=== PATIENT | female | born 1975 | race Caucasian/White ===

== ENCOUNTER 2018-01-21 15:17 | Emergency (ER) | payer OTHER ==
[~2018-01-21] VITALS: Ht 175.3 cm; Wt 69.8 kg
[~2018-01-21 15:17] MED LIST: ADAL40PEN SC; ALPR.5 PO; AZAT50; BUSP5; CANNABIS OIL; CEFD300 PO; CETI5 PO; CIPR500 PO; CLIM.025TP; CLON.2 PO; CLON.5; Cyclobenzaprine5 MG PO; Cymbalta30 MG PO; DIAZ5 PO; DULO60 PO; ESTR.1TPBW; HYDMOR4 PO; Keflex500 MG PO; LAMO100 PO; LOPE2C PO; LORA1 PO; Lomotil Tablet1 EACH PO; MARIJUANA; MEDR10 PO; NITR100CA PO; Norco 5-325 Ta1 EACH PO; Norco 7.5-3251 EACH PO; ONDA4ODT MM; OXYC10ER PO; OXYC10TA19 PO; OXYC5 PO; PARO20 PO; PARO30 PO; Percocet 5-3251 EACH PO; Pyridium100 MG PO; QNASL8.7 GM INH; QUET25 PO; SACC250C; SACC250C PO; VANCOMYCIN2 GM/250 M IV; VIT B SHOT; Vancocin HCL1000 MG
[2018-01-21 15:44] LABS: BASOPHILS ABSOLUTE AUTO 0.05 K/mm3 (0.00-0.23); BASOPHILS PERCENT AUTO 1 % (0-2); EOSINOPHILS ABSOLUTE AUTO 0.06 K/mm3 (0.00-0.68); EOSINOPHILS PERCENT AUTO 1 % (0-6); Hematocrit 40.4 % (33.0-51.0); Hemoglobin 14.1 g/dL (11.5-16.0); IMMATURE GRAN ABSOLUTE AUTO 0.01 K/mm3 (0.00-0.10); IMMATURE GRAN PERCENT AUTO 0 % (0-1); LYMPHOCYTES ABSOLUTE AUTO 1.02 K/mm3 (0.84-5.20); LYMPHOCYTES PERCENT AUTO 23 % (21-46); MONOCYTES ABSOLUTE AUTO 0.43 K/mm3 (0.16-1.47); MONOCYTES PERCENT AUTO 10 % (4-13); Mean Corpuscular HGB 31.8 pg (26.0-34.0); Mean Corpuscular HGB Conc 34.9 g/dL (31.5-36.5); Mean Corpuscular Volume 91 fL (80-100); Mean Platelet Volume 10.3 fL (9.1-12.4); NEUTROPHILS ABSOLUTE AUTO 2.91 K/mm3 (1.96-9.15); NEUTROPHILS PERCENT AUTO 65 % (41-73); Platelet Count 294 K/mm3 (150-400); Red Blood Cell Count 4.43 M/mm3 (3.80-5.20); White Blood Cell Count 4.48 K/mm3 (4.00-11.30)
[2018-01-21 16:04] LABS: Alanine Aminotransfer (ALT/SGP 44 U/L (12-78); Albumin, Blood 4.1 g/dL (3.4-5.0); Albumin/Globulin Ratio 1.2 (0.8-1.8); Alk Phos 45 U/L (50-136); Anion Gap 14 mmol/L (6-16); Aspartate Aminotrans (AST/SGOT 31 U/L (12-37); Bilirubin, Total 0.5 mg/dL (0.1-1.0); Blood Urea Nitrogen 9 mg/dL (8-24); Bun/Creatinine Ratio 11.4 (12.0-20.0); CO2, Blood 24 mmol/L (21-32); CPK Creatine Kinase 81 U/L (26-193); Calcium, Blood 9.4 mg/dL (8.5-10.1); Chloride, Blood 101 mmol/L (98-108); Creatine Kinase MB 2.9 ng/mL (0.0-3.6); Creatine Kinase MB Index 3.6 (0.0-4.0); Creatinine, Blood 0.79 mg/dL (0.40-1.00); Globulin, Blood 3.4 g/dL (2.2-4.0); Glomerular Filtration Rate >60 (60-); Glucose, Blood 108 mg/dL (70-99); Potassium, Blood 3.3 mmol/L (3.5-5.5); Sodium, Blood 139 mmol/L (136-145); Total Protein, Blood 7.5 g/dL (6.4-8.2)
[2018-01-21 16:10] LABS: Source, Urine Clean Catch
[2018-01-21 16:10] LABS: Adenovirus F 40/41 Not Detected (NOT DETECT); Astrovirus Not Detected (NOT DETECT); Campylobacter Sp Not Detected (NOT DETECT); Cryptosporidium Not Detected (NOT DETECT); Cyclospora Cayetanensis Not Detected (NOT DETECT); E. Coli O157 Not Detected (NOT DETECT); Entamoeba Histolytica Not Detected (NOT DETECT); Enteroaggregative E. coli-EAEC Not Detected (NOT DETECT); Enteropathogenic E. coli-EPEC Not Detected (NOT DETECT); Enterotoxigenic E. coli-ETEC Not Detected (NOT DETECT); Giardia Lamblia Not Detected (NOT DETECT); Norovirus GI/GII Not Detected (NOT DETECT); Plesiomonas Shigelloides Not Detected (NOT DETECT); Rotavirus A Not Detected (NOT DETECT); Salmonella Sp Not Detected (NOT DETECT); Sapovirus Not Detected (NOT DETECT); Shiga Toxin-prod E. coli-STEC Not Detected (NOT DETECT); Shigella/Enteroin E. coli-EIEC Not Detected (NOT DETECT); Vibrio Cholerae Not Detected (NOT DETECT); Vibrio Sp Not Detected (NOT DETECT); Yersinia Enterocolitica Not Detected (NOT DETECT)
[2018-01-21 16:32] LABS: Blood, Urine Neg (Neg); Glucose Qualitative, Urine Neg (Neg); Ketones, Urine 4+ (Neg); Leukocyte Esterase, Urine 1+ (Neg); Nitrite, Urine Neg (Neg); Protein, Urine 2+ (Neg); Specific Gravity, Urine 1.025 (1.003-1.022); Urobilinogen, Urine NORM (Normal)
[2018-01-21 16:39] LABS: Bilirubin, Urine 1+ (Neg)
[2018-01-21 16:40] LABS: Appearance, Urine Hazy (Clear); Color, Urine Yellow (P-Yellow)
[2018-01-21 16:42] LABS: Bacteria Not Seen /hpf; Red Blood Cells, Urine Not Seen /hpf (0-2); Squamous Epithelial Cells Few /hpf (Few); White Blood Cells, Urine 0-2 /hpf (0-5)
[2018-01-21] MEDS ORDERED: Macrobid 100 M100 MG PO (17:30)
[2018-01-21] MEDS ORDERED: Flagyl500 MG PO (17:30)
== END 2018-01-21 17:51 | disposition home or self-care (01) ==
LOC: ER 15:17
PROVIDERS: Emergency Medicine
DX: T67.8XXA Other effects of heat and light, initial encounter (principal); N39.0 Urinary tract infection, site not specified; R19.7 Diarrhea, unspecified; X30.XXXA Exposure to excessive natural heat, initial encounter
CPT/HCPCS: 80053; 81001; 82550; 82553; 83690; 83735; 85025; 87507; 96360; 96361; 99284-25; J7030

== ENCOUNTER 2020-03-11 15:41 | Inpatient (IN) | payer OTHER, MEDICARE ==
[~2020-03-11] VITALS: Ht 167.6 cm; Wt 80.5 kg
[~2020-03-11 15:41] MED LIST changes: +Flagyl500 MG PO; +Macrobid 100 M100 MG PO
[2020-03-11] MEDS ORDERED: ESTRADIOL PO (16:04)
[2020-03-11] MEDS ORDERED: LOPE2C PO (16:05)
[2020-03-11] MEDS ORDERED: LIDO700A20 TOP (16:05)
[2020-03-11] MEDS ORDERED: PROG100 PO (16:06)
[2020-03-11] MEDS ORDERED: MELA3 PO (16:06)
[2020-03-11] MEDS ORDERED: Seroquel Xr50 MG PO (16:07)
[2020-03-11 17:32] LABS: BASOPHILS ABSOLUTE AUTO 0.04 K/mm3 (0.00-0.23); BASOPHILS PERCENT AUTO 1 % (0-2); EOSINOPHILS ABSOLUTE AUTO 0.01 K/mm3 (0.00-0.68); EOSINOPHILS PERCENT AUTO 0 % (0-6); Hematocrit 39.9 % (33.0-51.0); Hemoglobin 13.3 g/dL (11.5-16.0); IMMATURE GRAN ABSOLUTE AUTO 0.02 K/mm3 (0.00-0.10); IMMATURE GRAN PERCENT AUTO 0 % (0-1); LYMPHOCYTES ABSOLUTE AUTO 0.75 K/mm3 (0.84-5.20); LYMPHOCYTES PERCENT AUTO 9 % (21-46); MONOCYTES ABSOLUTE AUTO 0.37 K/mm3 (0.16-1.47); MONOCYTES PERCENT AUTO 4 % (4-13); Mean Corpuscular HGB 31.2 pg (26.0-34.0); Mean Corpuscular HGB Conc 33.3 g/dL (31.5-36.5); Mean Corpuscular Volume 94 fL (80-100); Mean Platelet Volume 10.3 fL (9.1-12.4); NEUTROPHILS ABSOLUTE AUTO 7.26 K/mm3 (1.96-9.15); NEUTROPHILS PERCENT AUTO 86 % (41-73); Platelet Count 287 K/mm3 (150-400); RDW Standard Deviation 41.6 fL (35.1-46.3); Red Blood Cell Count 4.26 M/mm3 (3.80-5.20); White Blood Cell Count 8.45 K/mm3 (4.00-11.30)
[2020-03-11 17:47] LABS: Alanine Aminotransfer (ALT/SGP 37 U/L (12-78); Albumin, Blood 4.3 g/dL (3.4-5.0); Albumin/Globulin Ratio 1.2 (0.8-1.8); Alk Phos 60 U/L (50-136); Anion Gap 7 mmol/L (6-16); Aspartate Aminotrans (AST/SGOT 20 U/L (12-37); Bilirubin, Total 0.4 mg/dL (0.1-1.0); Blood Urea Nitrogen 13 mg/dL (8-24); CO2, Blood 24 mmol/L (21-32); Calcium, Blood 8.7 mg/dL (8.5-10.1); Chloride, Blood 112 mmol/L (98-108); Creatinine, Blood 0.72 mg/dL (0.40-1.00); Globulin, Blood 3.5 g/dL (2.2-4.0); Glomerular Filtration Rate >60 (60-); Glucose, Blood 87 mg/dL (70-99); Potassium, Blood 3.7 mmol/L (3.5-5.5); Sodium, Blood 143 mmol/L (136-145); Total Protein, Blood 7.8 g/dL (6.4-8.2)
--- NOTE | 2020-03-12 01:32 | NUR ---
CALL PLACED TO HOSPITALIST. PT REPORTING PAIN INCREASED 45 MINUTES DESPITE BEING GIVEN 2MG OF DILAUDID. NO INCREASE IN NAUSEA. [facility] CONTACTED FOR RESULTS OF CT. GIVEN TO DR. HAINES. N.O. FOR FENTANYL 25MCG IV Q4HRS PRN PAIN.
--- NOTE | 2020-03-12 04:43 | NUR ---
SHIFT SUMMARY: VSS. AFEB. AAOX4. COMMUNICATES NEEDS. MED X 2 FOR L FLANK PAIN, WRAPPING AROUND TO L ABD. PT SLEEPING IN BETWEEN PAIN MED DOSES BUT REPORTS LITTLE RELIEF FROM MEDICATION WHEN SHE IS AWAKE. REPORTING NAUSEA UPON WAKING THIS AM. PO PHENERGAN ADMINISTERED. APPEARS EFFECTIVE, PT CURRENTLY SLEEPING. HAS NOT VOIDED SO FAR TONIGHT. WILL ENCOURAGE VOID WHEN PT WAKES UP AGAIN. IV FLUIDS CONTINUOUSLY PER ORDERS. PT REMAINS NPO. NO VOMITING TONIGHT. BT ACTIVE. NO BM. WILL CONT TO MONITOR.
[2020-03-12 05:37] LABS: Source, Urine Voided
[2020-03-12 05:39] LABS: Appearance, Urine Hazy (Clear); Bilirubin, Urine Neg (Neg); Blood, Urine 1+ (Neg); Color, Urine Yellow (P-Yellow); Glucose Qualitative, Urine Neg (Neg); Ketones, Urine 3+ (Neg); Leukocyte Esterase, Urine 1+ (Neg); Nitrite, Urine Neg (Neg); Protein, Urine 1+ (Neg); Specific Gravity, Urine 1.025 (1.003-1.022); Urobilinogen, Urine NORM (Normal)
[2020-03-12 05:48] LABS: Bacteria Many /hpf; Red Blood Cells, Urine 0-2 /hpf (0-2); Squamous Epithelial Cells Many /hpf (Few)
[2020-03-12 06:07] LABS: BASOPHILS ABSOLUTE AUTO 0.05 K/mm3 (0.00-0.23); BASOPHILS PERCENT AUTO 1 % (0-2); EOSINOPHILS ABSOLUTE AUTO 0.05 K/mm3 (0.00-0.68); EOSINOPHILS PERCENT AUTO 1 % (0-6); Hematocrit 41.8 % (33.0-51.0); Hemoglobin 13.4 g/dL (11.5-16.0); IMMATURE GRAN ABSOLUTE AUTO 0.01 K/mm3 (0.00-0.10); IMMATURE GRAN PERCENT AUTO 0 % (0-1); LYMPHOCYTES ABSOLUTE AUTO 1.25 K/mm3 (0.84-5.20); LYMPHOCYTES PERCENT AUTO 25 % (21-46); MONOCYTES PERCENT AUTO 8 % (4-13); Mean Corpuscular HGB 31.1 pg (26.0-34.0); Mean Corpuscular HGB Conc 32.1 g/dL (31.5-36.5); Mean Corpuscular Volume 97 fL (80-100); Mean Platelet Volume 10.6 fL (9.1-12.4); NEUTROPHILS ABSOLUTE AUTO 3.34 K/mm3 (1.96-9.15); NEUTROPHILS PERCENT AUTO 66 % (41-73); Platelet Count 242 K/mm3 (150-400); RDW Coefficient Variation 11.9 % (11.7-14.2); RDW Standard Deviation 43.2 fL (35.1-46.3); Red Blood Cell Count 4.31 M/mm3 (3.80-5.20)
[2020-03-12 06:19] LABS: Anion Gap 6 mmol/L (6-16); Blood Urea Nitrogen 12 mg/dL (8-24); Bun/Creatinine Ratio 19.2 (12.0-20.0); CO2, Blood 22 mmol/L (21-32); Calcium, Blood 8.3 mg/dL (8.5-10.1); Chloride, Blood 113 mmol/L (98-108); Creatinine, Blood 0.63 mg/dL (0.40-1.00); Glomerular Filtration Rate >60 (60-); Glucose, Blood 68 mg/dL (70-99); Potassium, Blood 3.7 mmol/L (3.5-5.5); Sodium, Blood 141 mmol/L (136-145)
--- NOTE | 2020-03-12 06:42 | NUR ---
PT HAS NOT VOIDED TONIGHT EXCEPT FOR 25MLS. DENIES DYSURIA. BLADDER SCANNER SHOWED 452MLS. PT WILL ATTEMPT TO VOID AGAIN, IF UNSUCCESSFUL, WILL PASS ON TO DAY SHIFT TO NOTIFY .
[2020-03-12 17:34] LABS: Source, Urine Clean Catch
[2020-03-12 17:43] LABS: Appearance, Urine Clear (Clear); Bilirubin, Urine Neg (Neg); Blood, Urine Neg (Neg); Color, Urine Yellow (P-Yellow); Glucose Qualitative, Urine Neg (Neg); Ketones, Urine 3+ (Neg); Leukocyte Esterase, Urine Neg (Neg); Nitrite, Urine Neg (Neg); Protein, Urine Neg (Neg); Urobilinogen, Urine NORM (Normal)
--- NOTE | 2020-03-12 17:53 | NUR ---
SHIFT SUMMARY- PT IS A/O, PLESANT AND COOPERATIVE. SHE IS HAVING PAIN IN THE ABDOMEN SHE IS RECIEVING PAIN MEDICATION PER MAR. SHE C/O EAR PAIN, CT PREFORMED THIS AFTERNOON. SPOKE WITH DR. TONG ON THE PHONE HE SAID THAT HE DID NOT FEEL SURGICAL CONSULT WAS APPROPRIATE. WILL TREAT WITH IV ABX, STEROIDS, AND GI REST.
--- NOTE | 2020-03-12 22:20 | NUR ---
CONTUINUES TO VOICE COMPLAINTS OF PAIN IN ABD - SEE MAR FOR DETAILS OF WHEN SHE RECEIVED MEDS FOR IT. IVF INFUSING AT 140 ML/HR. IV SITE CHANGED DUE TO ORIGINAL ONE "FALLING OUT" PER PT STATEMENT AND NEW SITE OF LEFT FOREARM PLACED. CALL LIGHT IN REACH.
--- NOTE | 2020-03-13 04:22 | NUR ---
SHIFT SUMMARY CONTINUES TO VOICE SEVERE PAIN OF ABDOMEN, REQUESTING AND RECEIVING ANALGESICS ABOUT EVERY 2 HRS OR SO. SEE MAR FOR DETAILS. PAIN CONTINUES TO BE BETWEEN 6 AND 10 OUT OF 10 EACH TIME SHE REQUESTS ANALGESIC. IVF OF NS WITH 20 mEq KCL at 150 ml/hr CONTINUES PT REMAINS NPO. CALL LIGHT IN REACH.
[2020-03-13 08:17] LABS: BASOPHILS ABSOLUTE AUTO 0.04 K/mm3 (0.00-0.23); BASOPHILS PERCENT AUTO 1 % (0-2); EOSINOPHILS ABSOLUTE AUTO 0.01 K/mm3 (0.00-0.68); EOSINOPHILS PERCENT AUTO 0 % (0-6); Hematocrit 36.6 % (33.0-51.0); Hemoglobin 12.3 g/dL (11.5-16.0); IMMATURE GRAN ABSOLUTE AUTO 0.01 K/mm3 (0.00-0.10); IMMATURE GRAN PERCENT AUTO 0 % (0-1); LYMPHOCYTES ABSOLUTE AUTO 1.18 K/mm3 (0.84-5.20); LYMPHOCYTES PERCENT AUTO 22 % (21-46); MONOCYTES ABSOLUTE AUTO 0.51 K/mm3 (0.16-1.47); MONOCYTES PERCENT AUTO 9 % (4-13); Mean Corpuscular HGB 31.8 pg (26.0-34.0); Mean Corpuscular HGB Conc 33.6 g/dL (31.5-36.5); Mean Corpuscular Volume 95 fL (80-100); Mean Platelet Volume 10.2 fL (9.1-12.4); NEUTROPHILS ABSOLUTE AUTO 3.66 K/mm3 (1.96-9.15); NEUTROPHILS PERCENT AUTO 68 % (41-73); Platelet Count 217 K/mm3 (150-400); RDW Coefficient Variation 11.9 % (11.7-14.2); RDW Standard Deviation 40.9 fL (35.1-46.3); Red Blood Cell Count 3.87 M/mm3 (3.80-5.20); White Blood Cell Count 5.41 K/mm3 (4.00-11.30)
[2020-03-13 08:31] LABS: Anion Gap 7 mmol/L (6-16); Blood Urea Nitrogen 10 mg/dL (8-24); Bun/Creatinine Ratio 16.8 (12.0-20.0); CO2, Blood 22 mmol/L (21-32); Calcium, Blood 8.3 mg/dL (8.5-10.1); Chloride, Blood 111 mmol/L (98-108); Creatinine, Blood 0.59 mg/dL (0.40-1.00); Glomerular Filtration Rate >60 (60-); Glucose, Blood 79 mg/dL (70-99); Potassium, Blood 4.2 mmol/L (3.5-5.5); Sodium, Blood 140 mmol/L (136-145)
--- NOTE | 2020-03-13 18:11 | NUR ---
SHIFT SUMMARY- PT IS A/O PLESANT AND COOPERATIVE. SHE IS EXPERIENCING GI PAIN WHICH IS BEING MANAGED WITH PAIN MEDICATIONS. SHE ALSO HAD ONE EPISODE OF ANXIETY THIS EVENING AND WAS PROVIDED ATIVAN WHICH RELIEVED SYMPOTOMS. PT IS NPO. SHE IS VOIDING WELL AND HAD ONE LOOSE BM THIS SHIFT.
[2020-03-14 05:20] LABS: BASOPHILS ABSOLUTE AUTO 0.03 K/mm3 (0.00-0.23); BASOPHILS PERCENT AUTO 1 % (0-2); EOSINOPHILS ABSOLUTE AUTO 0.03 K/mm3 (0.00-0.68); EOSINOPHILS PERCENT AUTO 1 % (0-6); Hematocrit 35.8 % (33.0-51.0); Hemoglobin 11.7 g/dL (11.5-16.0); IMMATURE GRAN ABSOLUTE AUTO 0.01 K/mm3 (0.00-0.10); IMMATURE GRAN PERCENT AUTO 0 % (0-1); LYMPHOCYTES ABSOLUTE AUTO 1.55 K/mm3 (0.84-5.20); LYMPHOCYTES PERCENT AUTO 29 % (21-46); MONOCYTES ABSOLUTE AUTO 0.66 K/mm3 (0.16-1.47); MONOCYTES PERCENT AUTO 12 % (4-13); Mean Corpuscular HGB Conc 32.7 g/dL (31.5-36.5); Mean Corpuscular Volume 95 fL (80-100); Mean Platelet Volume 10.4 fL (9.1-12.4); NEUTROPHILS ABSOLUTE AUTO 3.15 K/mm3 (1.96-9.15); NEUTROPHILS PERCENT AUTO 58 % (41-73); Platelet Count 219 K/mm3 (150-400); RDW Coefficient Variation 11.9 % (11.7-14.2); Red Blood Cell Count 3.77 M/mm3 (3.80-5.20); White Blood Cell Count 5.43 K/mm3 (4.00-11.30)
--- NOTE | 2020-03-14 05:20 | NUR ---
SHIFT SUMMARY: VSS. AFEB. AAOX4. ABLE TO COMMUNICATE NEEDS. FOUND SOME RELIEF FROM PAIN AND ANXIETY AT START OF SHIFT AND WAS ABLE TO SLEEP FOR SEVERAL HOURS IN A ROW TONIGHT. DENIES N/V. REMAINS NPO PER ORDERS. ABD SOFT, TENDER IN L UPPER AND LOWER QUADRANT W/ LIGHT TOUCH. DENIES PASSING FLATUS. NO BM TONIGHT. IV FLUIDS CONT PER ORDERS. NO ACUTE CHANGES AT THIS TIME.
[2020-03-14 05:46] LABS: Magnesium, Blood 2.3 mg/dL (1.6-2.4)
[2020-03-14 05:47] LABS: Albumin, Blood 3.3 g/dL (3.4-5.0); Anion Gap 6 mmol/L (6-16); Blood Urea Nitrogen 9 mg/dL (8-24); Bun/Creatinine Ratio 14.7 (12.0-20.0); CO2, Blood 24 mmol/L (21-32); Calcium, Blood 8.4 mg/dL (8.5-10.1); Chloride, Blood 110 mmol/L (98-108); Creatinine, Blood 0.61 mg/dL (0.40-1.00); Glomerular Filtration Rate >60 (60-); Glucose, Blood 81 mg/dL (70-99); Phosphorus, Blood 2.3 mg/dL (2.5-4.9); Potassium, Blood 4.3 mmol/L (3.5-5.5); Sodium, Blood 140 mmol/L (136-145)
--- NOTE | 2020-03-14 06:31 | NUR ---
FALL: PT TOOK A SHORT WALK AND UPON RETURNING TO HER ROOM REPORTS THAT SHE GOT TANGLED UP ON HER IV TUBING AND LOST HER BALANCE. FELL AND BUMPED HEAD ON THE GROUND. IV POLE AND PUMPS FELL DOWN ON TOP OF HER. PT ASSESSED. VSS. NEURO CHECKS WNL. REPORTS MILD HEADACHE. PERRL. NO VISIBLE SIGNS OF INJURY. FALL REPORTED TO HOSPITALIST, DR. HAINES- DR. HAINES ORDERED NEURO CHECKS NEEDED, TYLENOL NEEDED FOR HEADACHE, FALL PRECAUTIONS. TALKED TO PT ABOUT CALLING FOR ASSISTANCE TO HELP MANAGE IV TUBING AND FOR ASSISTANCE WHEN WALKING. WILL CONT TO MONITOR.
--- NOTE | 2020-03-14 19:23 | NUR ---
SHIFT SUMMARY: NO ACUTE CHANGES TO REPORT THIS SHIFT. PT A&O; CALM AND COOPERATIVE WITH CARE. MEDICATED FOR PAIN, NAUSEA, & ANXIETY PER EMAR. 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 IV ABX CONTINUING. REPORT GIVEN TO ONCOMING RN.
--- NOTE | 2020-03-15 04:31 | NUR ---
42 year old Female [facility] PT with hx of crohns disease & 16 abd surgeries had small bowel followthrough which showed no SBO but PT continues to have acute abd & lt flank pain. PT had CT at [facility] which showed no kidney stones. PT medicated for pain & nausea multiple times with mild helpful effect. She had liquid bile colored stool during night after barium given for diagnostic test. Medicated for anxiety x 1 with 1 mg iv ativan with helpful effect. PT on fall precautions post fall yesterday AM, She says she fell at home several times prior to admission. PT states hx of necrotic bowel several times, hx of abd adhesions with multiple scars present. Home meds reviewed PT not currently getting some home meds. Updated med rec.
--- NOTE | 2020-03-15 19:39 | NUR ---
SHIFT SUMMARY: NO ACUTE CHANGES TO REPORT THIS SHIFT. PT A&O; ANXIOUS; COOPERATIVE WITH CARE. MEDICATED FOR ABD/FLANK PAIN PER EMAR. MEDICATED FOR NAUSEA PER EMAR. IV FLUIDS & IV ABX CONTINUING. REPORT GIVEN TO ONCOMING RN.
--- NOTE | 2020-03-16 02:01 | NUR ---
PT continues on IVF with potassium at 150 ml hour. Tolerated full liquids in evening but has some fecal incontinence after sleeping soundly for hours. She takes antidepressant rx & recieved remeron 30 mg oral dis tab at HS. Has RX for toradol 30 mg x 3 doses. last dose due at 3 AM. Helpful effect noted. PT seems to want to be sedated or recieve higher doses of dilaudid then required. Used clinical judgement for S/SX pain . Ativen 1 mg IV x 1 and dilaudid 1 mg IV x 1 with oral phenergan 25 mg helpful. Bowels moving, decreased flank pain.
[2020-03-16 06:06] LABS: BASOPHILS ABSOLUTE AUTO 0.04 K/mm3 (0.00-0.23); BASOPHILS PERCENT AUTO 1 % (0-2); EOSINOPHILS ABSOLUTE AUTO 0.03 K/mm3 (0.00-0.68); EOSINOPHILS PERCENT AUTO 1 % (0-6); Hematocrit 39.5 % (33.0-51.0); Hemoglobin 13.8 g/dL (11.5-16.0); IMMATURE GRAN ABSOLUTE AUTO 0.02 K/mm3 (0.00-0.10); IMMATURE GRAN PERCENT AUTO 0 % (0-1); LYMPHOCYTES ABSOLUTE AUTO 1.56 K/mm3 (0.84-5.20); LYMPHOCYTES PERCENT AUTO 25 % (21-46); MONOCYTES PERCENT AUTO 13 % (4-13); Mean Corpuscular HGB 31.9 pg (26.0-34.0); Mean Corpuscular HGB Conc 34.9 g/dL (31.5-36.5); Mean Corpuscular Volume 91 fL (80-100); Mean Platelet Volume 10.7 fL (9.1-12.4); NEUTROPHILS ABSOLUTE AUTO 3.92 K/mm3 (1.96-9.15); NEUTROPHILS PERCENT AUTO 62 % (41-73); Platelet Count 217 K/mm3 (150-400); RDW Coefficient Variation 11.8 % (11.7-14.2); RDW Standard Deviation 39.6 fL (35.1-46.3); Red Blood Cell Count 4.32 M/mm3 (3.80-5.20); White Blood Cell Count 6.37 K/mm3 (4.00-11.30)
--- NOTE | 2020-03-16 06:19 | NUR ---
PT sleeping soundly during night. Pleasant while awake want to rest well so she can recover. No further bowel movements & sips only after going to bed for night. MRSA culture from lt inner ear & upper scalp sent due to hx of MRSA. 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 PT has 3 Children youngest 15? Her 22 year old Daughter due to graduate college soon. PT says she needs to have her psych meds adjusted by [facility] team but has video visits with her mental health provider, Mild confusion at times PT had a fall several days ago since admission & says she falls at home frequently. PT said she had black tarry stool & black emisis, brown stool observed & bright yellow emisis, When PT roused she does CO spasm type pain in ABD, Powerglide would not have blood return but running well. flushes without resistance.
[2020-03-16 06:25] LABS: Alanine Aminotransfer (ALT/SGP 26 U/L (12-78); Albumin, Blood 3.6 g/dL (3.4-5.0); Albumin/Globulin Ratio 1.1 (0.8-1.8); Alk Phos 52 U/L (50-136); Anion Gap 3 mmol/L (6-16); Aspartate Aminotrans (AST/SGOT 14 U/L (12-37); Bilirubin, Total 0.3 mg/dL (0.1-1.0); Blood Urea Nitrogen 9 mg/dL (8-24); Bun/Creatinine Ratio 11.1 (12.0-20.0); CO2, Blood 29 mmol/L (21-32); Chloride, Blood 111 mmol/L (98-108); Creatinine, Blood 0.81 mg/dL (0.40-1.00); Globulin, Blood 3.3 g/dL (2.2-4.0); Glomerular Filtration Rate >60 (60-); Glucose, Blood 94 mg/dL (70-99); Magnesium, Blood 2.3 mg/dL (1.6-2.4); Sodium, Blood 143 mmol/L (136-145); Total Protein, Blood 6.9 g/dL (6.4-8.2)
--- NOTE | 2020-03-16 17:26 | NUR ---
THE PATIENT SEEMS TO HAVE ONGOING NAUSEA AND PAIN THAT IS UNRESOLVED REGARDLESS OF PAIN AND ANTI-NAUSEA MEDICATION. SHE HAS BEEN FOUNF SOBBING IN HER ROOM A FEW TIMES IN PAIN AND GETS MODERATE RELIEF FROM THE MEDICATION REQUESTED. VITALS HAVE BEEN STABLE. THE PATIENT CONTINUES ON IV ABX WITHOUT S/SX OF ADVERSE REACTIONS NOTED OR REPORTED. WILL CONTINUE TO TREAT HER SYMPTOMS NEEDED. HAVE ATTEMPTED TO CALL IN CONSULT WITH DR ALDRICH TWICE TODAY WITHOUT ANY ANSWER FROM HIM.
--- NOTE | 2020-03-17 07:14 | NUR ---
PT had GI consult & has planned endoscopy due to continued abd pain 01/21 & nausea & vomiting. Drank 2 ensure completes & one ensure compact my shift without ill effect. No vomiting mild nausea. Dilaudid 1 mg x 3 with mild helpful effect on lt flank pain & lt abd pain. Support offered for depression anxiety. Disabled with PTSD. Fall precautions. Neg rapid covid 19 test preprocedure.
--- NOTE | 2020-03-17 13:39 | NUR ---
PT TRANSFERED TO [facility] FROM [facility] FLOOR VIA [facility]NY. History, Chart, Medications and Allergies reviewed before start of procedure. Lungs clear T/O to Auscultation. Patient confirms NPO status and agrees with scheduled surgery. Pre-Op teaching done. Pt verbalizes understanding.
--- NOTE | 2020-03-17 15:32 | NUR ---
SHIFT SUMMARY PT IS A/O X 4 AND HAS MOMENTS OF FORGETFULNESS. SHE HAS ONGOING C/O PAIN TO HER ABDOMEN WHICH SHE HAS BEEN MEDICATED FOR ORDERED. SHE HAS BEEN NPO SINCE BREAKFAST. SHE WENT DOWN FOR HER SCHEDULED SCOPE THIS AFTERNOON AND IS IN RECOVERY NOW. PER REPORT THERE WERE BIOPSIES TAKEN THROUGHOUT. THE PT HAS BEEN CALLING APPROPRIATELY WHEN SHE NEEDS TO GET UP TO TOILET BUT DOES REMAIN A FALL RISK DUE TO HER FALL 3 DAYS AGO. BED ALARM IS ON FOR PT SAFETY.
--- NOTE | 2020-03-18 05:07 | NUR ---
SHIFT SUMMARY: AAOX4. VSS. AFEB. SCHEDULED TORADOL FOR PAIN MANAGEMENT. PT REQUESTING DILAUDID BETWEEN TORADOL DOSES. REPORTING PAIN CONSISTENTLY 7/10 IN L FLANK, WRAPPING AROUND TO L SIDE, AND L ABD. ABD SOFT, TENDER IN L UPPER AND LOWER QUADRANTS. BT ACTIVE X4. REPORTS N/V X 1 TONIGHT- THIS OCCURRED AT LEAST 7 HOURS AFTER EATING DINNER. REPORTED THAT SHE FERN REG DIET WELL AT DINNER TIME. COMPAZINE GIVEN FOR NAUSEA. APPEARS TO BE SLEEPING AFTER. NO ACUTE CHANGES. WILL CONT TO MONITOR.
[2020-03-18 06:39] LABS: BASOPHILS ABSOLUTE AUTO 0.04 K/mm3 (0.00-0.23); BASOPHILS PERCENT AUTO 1 % (0-2); EOSINOPHILS PERCENT AUTO 4 % (0-6); Hematocrit 40.2 % (33.0-51.0); Hemoglobin 13.6 g/dL (11.5-16.0); IMMATURE GRAN ABSOLUTE AUTO 0.01 K/mm3 (0.00-0.10); IMMATURE GRAN PERCENT AUTO 0 % (0-1); LYMPHOCYTES ABSOLUTE AUTO 0.95 K/mm3 (0.84-5.20); LYMPHOCYTES PERCENT AUTO 19 % (21-46); MONOCYTES ABSOLUTE AUTO 0.39 K/mm3 (0.16-1.47); MONOCYTES PERCENT AUTO 8 % (4-13); Mean Corpuscular HGB 31.6 pg (26.0-34.0); Mean Corpuscular HGB Conc 33.8 g/dL (31.5-36.5); Mean Corpuscular Volume 93 fL (80-100); Mean Platelet Volume 10.5 fL (9.1-12.4); NEUTROPHILS ABSOLUTE AUTO 3.53 K/mm3 (1.96-9.15); NEUTROPHILS PERCENT AUTO 69 % (41-73); Platelet Count 192 K/mm3 (150-400); RDW Standard Deviation 41.6 fL (35.1-46.3); Red Blood Cell Count 4.31 M/mm3 (3.80-5.20); White Blood Cell Count 5.12 K/mm3 (4.00-11.30)
[2020-03-18 06:55] LABS: Alanine Aminotransfer (ALT/SGP 109 U/L (12-78); Albumin, Blood 3.2 g/dL (3.4-5.0); Albumin/Globulin Ratio 1.1 (0.8-1.8); Alk Phos 53 U/L (50-136); Anion Gap 5 mmol/L (6-16); Aspartate Aminotrans (AST/SGOT 98 U/L (12-37); Bilirubin, Total 0.6 mg/dL (0.1-1.0); Blood Urea Nitrogen 7 mg/dL (8-24); Bun/Creatinine Ratio 8.7 (12.0-20.0); CO2, Blood 29 mmol/L (21-32); Calcium, Blood 8.5 mg/dL (8.5-10.1); Chloride, Blood 108 mmol/L (98-108); Creatinine, Blood 0.81 mg/dL (0.40-1.00); Glomerular Filtration Rate >60 (60-); Glucose, Blood 79 mg/dL (70-99); Potassium, Blood 3.9 mmol/L (3.5-5.5); Sodium, Blood 142 mmol/L (136-145); Total Protein, Blood 6.2 g/dL (6.4-8.2)
--- NOTE | 2020-03-18 08:12 | NUR ---
03/18/20 0812 MORENA SALTER History, Chart, Medications and Allergies reviewed before start of procedure. 3-LEAD EKG REVIEWED WITH PHYSICIAN PRIOR TO START OF PROCEDURE. O2 VIA N/C INTACT THROUGHOUT SEDATION/PROCEDURE. MONITOR INTACT WITH CONTINUOUS PULSE OXIMETRY AND INTERMITTENT BP. PATIENT DETERMINED TO BE ASA APPROPRIATE FOR PROPOFOL SEDATION PRIOR TO START OF PROCEDURE BY
--- NOTE | 2020-03-18 19:43 | NUR ---
SHIFT SUMMARY AFTAB BECKERD OF PAIN, RECEIVED IV DILAUDID TO GOOD EFFECT. GOT PO PHENERGAN ONCE, TOLERATING REGULAR DIET WELL. MAXIMILIANER CAME TO SEE PT, EVIDENTALLY NO SURGERY REQUIRED. GI PANEL SENT TO LAB. INDEP IN ROOM. TOOK MEDS PRESCRIBED, REPORT GIVEN TO NOC RN
[2020-03-18 20:25] LABS: Adenovirus F 40/41 Not Detected (NOT DETECT); Astrovirus Not Detected (NOT DETECT); Campylobacter Sp Not Detected (NOT DETECT); Cryptosporidium Not Detected (NOT DETECT); Cyclospora Cayetanensis Not Detected (NOT DETECT); E. Coli O157 Not Detected (NOT DETECT); Entamoeba Histolytica Not Detected (NOT DETECT); Enteroaggregative E. coli-EAEC Not Detected (NOT DETECT); Enteropathogenic E. coli-EPEC Not Detected (NOT DETECT); Enterotoxigenic E. coli-ETEC Not Detected (NOT DETECT); Giardia Lamblia Not Detected (NOT DETECT); Norovirus GI/GII Not Detected (NOT DETECT); Plesiomonas Shigelloides Not Detected (NOT DETECT); Rotavirus A Not Detected (NOT DETECT); Salmonella Sp Not Detected (NOT DETECT); Sapovirus Not Detected (NOT DETECT); Shiga Toxin-prod E. coli-STEC Not Detected (NOT DETECT); Shigella/Enteroin E. coli-EIEC Not Detected (NOT DETECT); Vibrio Cholerae Not Detected (NOT DETECT); Vibrio Sp Not Detected (NOT DETECT); Yersinia Enterocolitica Not Detected (NOT DETECT)
--- NOTE | 2020-03-18 21:26 | NUR ---
pt resting comfortably in bed; cheerful.
--- NOTE | 2020-03-19 03:50 | NUR ---
SHIFT SUMMARY: 44 Y/O FEMALE RESTED COMFORTABLY ALL SHIFT; PT C/O ABD PAIN RATED 8/10 WITH TORADOL 30MG IVP SCHEDULED GIVEN AND DILAUDID 1MG IVP X 2 WITH RELIEF FELT; PT DENIES NAUSEA; EAGER TO RETURN HOME SOON; BED LOW POSITION WITH CALL LIGHT AT SIDE.
[2020-03-19 04:49] LABS: BASOPHILS ABSOLUTE AUTO 0.02 K/mm3 (0.00-0.23); BASOPHILS PERCENT AUTO 0 % (0-2); EOSINOPHILS ABSOLUTE AUTO 0.02 K/mm3 (0.00-0.68); EOSINOPHILS PERCENT AUTO 0 % (0-6); Hematocrit 40.1 % (33.0-51.0); Hemoglobin 13.5 g/dL (11.5-16.0); IMMATURE GRAN ABSOLUTE AUTO 0.01 K/mm3 (0.00-0.10); IMMATURE GRAN PERCENT AUTO 0 % (0-1); LYMPHOCYTES ABSOLUTE AUTO 0.57 K/mm3 (0.84-5.20); LYMPHOCYTES PERCENT AUTO 11 % (21-46); MONOCYTES ABSOLUTE AUTO 0.47 K/mm3 (0.16-1.47); MONOCYTES PERCENT AUTO 9 % (4-13); Mean Corpuscular HGB 31.3 pg (26.0-34.0); Mean Corpuscular HGB Conc 33.7 g/dL (31.5-36.5); Mean Corpuscular Volume 93 fL (80-100); Mean Platelet Volume 10.6 fL (9.1-12.4); NEUTROPHILS ABSOLUTE AUTO 3.99 K/mm3 (1.96-9.15); NEUTROPHILS PERCENT AUTO 79 % (41-73); Platelet Count 223 K/mm3 (150-400); RDW Coefficient Variation 12.1 % (11.7-14.2); RDW Standard Deviation 41.7 fL (35.1-46.3); Red Blood Cell Count 4.32 M/mm3 (3.80-5.20); White Blood Cell Count 5.08 K/mm3 (4.00-11.30)
[2020-03-19 05:12] LABS: Alanine Aminotransfer (ALT/SGP 170 U/L (12-78); Albumin, Blood 3.5 g/dL (3.4-5.0); Alk Phos 74 U/L (50-136); Anion Gap 4 mmol/L (6-16); Aspartate Aminotrans (AST/SGOT 137 U/L (12-37); Bilirubin, Total 0.4 mg/dL (0.1-1.0); Blood Urea Nitrogen 10 mg/dL (8-24); Bun/Creatinine Ratio 12.4 (12.0-20.0); CO2, Blood 28 mmol/L (21-32); Chloride, Blood 108 mmol/L (98-108); Creatinine, Blood 0.81 mg/dL (0.40-1.00); Globulin, Blood 3.4 g/dL (2.2-4.0); Glomerular Filtration Rate >60 (60-); Glucose, Blood 93 mg/dL (70-99); Magnesium, Blood 2.2 mg/dL (1.6-2.4); Potassium, Blood 4.2 mmol/L (3.5-5.5); Sodium, Blood 140 mmol/L (136-145); Total Protein, Blood 6.9 g/dL (6.4-8.2)
[2020-03-19] MEDS ORDERED: CHOLP PO (12:36)
[2020-03-19] MEDS ORDERED: TRAM50 PO (12:36)
[2020-03-19] MEDS ORDERED: MIRT30 PO (12:37)
[2020-03-19] MEDS ORDERED: MUPIROCIN15 GM TOP (12:38)
[2020-03-19] MEDS ORDERED: PANT40 PO (12:39)
[2020-03-19] MEDS ORDERED: PRED20 PO (12:45)
--- NOTE | 2020-03-19 13:30 | NUR ---
DISCHARGE SUMMARY PT DISCHARGING TO HOME. UPDATED MEDICATION LIST REVIEWED. NEW RX FAXED TO PHARMACY. REPORTS PAIN AT 10/22. DISCUSSED DC INSTRUCTIONS, INCLUDING FOLLOW UP APPTS. NO QUESTIONS AT THIS TIME. VITALS REVIEWED. PT ESCORTED OUT IN WHEELCHAIR WITH HUMAN SERVICES MANAGER AND FATHER.
== END 2020-03-19 13:36 | disposition home or self-care (01) | DRG 386 ==
LOC: ER 15:41 → MEDS 15:42
PROVIDERS: Internal Medicine; Nurse Practitioner Acute Care; Physician Assistant; Student in an Organized Health Care Education/Training Program; ADMIT Family Medicine
PROC: 0DB68ZX Excision of Stomach, Via Natural or Artificial Opening Endoscopic, Diagnostic (ICD-10-PCS; principal; 2020-03-17 14:00)
PROC: 0DBB8ZX Excision of Ileum, Via Natural or Artificial Opening Endoscopic, Diagnostic (ICD-10-PCS; 2020-03-17 14:00)
DX: K50.012 Crohn's disease of small intestine with intestinal obstruction (principal); H70.002 Acute mastoiditis without complications, left ear; Z90.49 Acquired absence of other specified parts of digestive tract; K50.90 Crohn's disease, unspecified, without complications; Z98.82 Breast implant status; F41.8 Other specified anxiety disorders; Z22.322 Carrier or suspected carrier of Methicillin resistant Staphylococcus aureus; G47.00 Insomnia, unspecified
CPT/HCPCS: 0097U; 36415; 70491; 74177; 74250; 80048; 80053; 80069; 81001; 81003; 83690; 83735; 83993; 85025; 85651; 86140; 87081; 87086; 88305; 88312; 88342; 96361; 96374; 96376; 99285-25; C9113; J0780; J1170; J1885; J1956; J2060; J2250; J2405; J2704; J2930; J3010; J3480; J7030; J7512; Q9967; U0002

== ENCOUNTER 2020-04-13 00:28 | Day surgery (SDC) | payer OTHER, MEDICARE ==
[~2020-04-13 00:28] MED LIST changes: +CHOLP PO; +ESTRADIOL PO; +LIDO700A20 TOP; +MELA3 PO; +MIRT30 PO; +MUPIROCIN15 GM TOP; +PANT40 PO; +PRED20 PO; +PROG100 PO; +Seroquel Xr50 MG PO; +TRAM50 PO
--- NOTE | 2020-04-13 13:26 | NUR ---
PICC INSERTION: UPON ARRIVAL PT INFORMED THIS RN THAT THEY TRIED TO START AT LEAST 12 IV'S ON PT, IN BOTH ARMS, FEET AND EVEN AN EJ. SHE ALSO STATES THAT SHE HAS HAD AT LEAST 15 OR MORE PICC'S T/O HER DIAGNOSES AND SURGERIES REGARDING HER CROHNS DISEASE. PT VERY ANXIOUS, TEARFUL. THIS RN ATTEMPTED 1 ATTEMPT, GOT RIGHT IN WITH GOOD BLOOD DRIPPING FROM INSERTION NEEDLE, BUT UNABLE TO ADVANCE GUIDEWIRE PAST SHOULDER, PT BECAME MORE TEARFUL AND DID NOT WANT TO GO ANY FURTHER. CALLED DR AND ENCOURAGED TO PUSH FOR PT TO GET MEDIPORT, HE SAID HE WOULD SEND IN A REFERRAL TO DR. MARIA OR JOSELIN
== END 2020-04-13 11:30 | disposition home or self-care (01) ==
LOC: ATC 00:28
DX: K50.90 Crohn's disease, unspecified, without complications (principal); Z90.49 Acquired absence of other specified parts of digestive tract; F32.9 Major depressive disorder, single episode, unspecified; F41.9 Anxiety disorder, unspecified; Z79.899 Other long term (current) drug therapy
CPT/HCPCS: 36569; C1751; J1642

== ENCOUNTER 2020-04-13 18:26 | Emergency (ER) | payer OTHER, MEDICARE | END 2020-04-13 20:13 | disposition home or self-care (01) | LOC: ER 18:26 | DX: R55 Syncope and collapse (principal); Z88.5 Allergy status to narcotic agent; Z88.0 Allergy status to penicillin; Z79.3 Long term (current) use of hormonal contraceptives; Z79.52 Long term (current) use of systemic steroids; Z79.899 Other long term (current) drug therapy ==

== ENCOUNTER 2020-09-15 10:23 | Emergency (ER) | payer MEDICARE, OTHER ==
[~2020-09-15] VITALS: Ht 175.3 cm; Wt 77.1 kg
[2020-09-15] MEDS ORDERED: HYDMOR2 PO (12:47)
[2020-09-15] MEDS ORDERED: PROM25 PO (12:57)
== END 2020-09-15 13:27 | disposition home or self-care (01) ==
LOC: ER 10:23
DX: S06.9X1A Unspecified intracranial injury with loss of consciousness of 30 minutes or less, initial encounter (principal); S16.1XXA Strain of muscle, fascia and tendon at neck level, initial encounter; M25.461 Effusion, right knee; Z88.5 Allergy status to narcotic agent; Z88.0 Allergy status to penicillin; Z88.2 Allergy status to sulfonamides; Z88.8 Allergy status to other drugs, medicaments and biological substances; Z79.899 Other long term (current) drug therapy; W55.12XA Struck by horse, initial encounter
CPT/HCPCS: 29505; 70450; 72125; 73564; 96374-59; 96375-59; 96376-59; 99284-25; J1170; J1642; J2550; J7120

== ENCOUNTER 2020-11-03 13:18 | Day surgery (SDC) | payer MEDICARE, OTHER ==
[~2020-11-03] VITALS: Ht 175.3 cm; Wt 169.6 kg
[~2020-11-03 13:18] MED LIST changes: +HYDMOR2 PO; +PROM25 PO
--- NOTE | 2020-11-03 15:13 | NUR ---
11/03/20 1513 Rick Toussaint 1 MG EPI ADDED TO EACH OF THE FIRST 3 BAGS OF LR FOR IRRIGATION PER ORDER
--- NOTE | 2020-11-03 15:18 | NUR ---
11/03/20 1518 Fauzia Solomon V VANCOM 1GM ORDERED FOR PT D/T PCN ALLERGY. VANCO WAS PLACED ON PUMP AND STARTED AT 1415, AT 1430 VANCO WAS STOPPED D/T REDNESS AND LOCALIZED HIVES NOTED AROUND THE IV SITE. PT DENIED SOB, DIZZINESS, NAUSEA. REPORTED MINIMAL DISCOMFORT AROUND IV SITE. DR. HANLEY AND DR. GALARZA AWARE. SOLUCORT 100MG WAS ADMINISTERED AT 1443 PER ORDERS. NO REACTION NOTED.
--- NOTE | 2020-11-03 17:35 | NUR ---
11/03/20 1734 MELITA CEDEÑO PT ENTERED PACU WITH A PAIN LEVEL OF 8. A TOTAL OF 100MCG FENTANYL GIVEN AND 2 TABS OF NORCO 5/325MG GIVEN. PT STATED IT DID NOT HELP HER PAIN AT ALL. PT BECAME EXTREMELY AGITATED AND REFUSED ALL HELP FROM THIS NURSE TO GET DRESSED. PT DID NOT WANT TO GO OVER DISCHARGE INSTRUCTIONS. THIS RN SPENT TIME WITH PT AND WENT OVER INSTRUCTIONS SLOWLY SO PATIENT COULD UNDERSTAND. PT STATED SHE CANT TAKE NORCO WTIHOUT AN ANTINAUSEA MEDICATION OR IT HAS TO BE DILAUDID. . THIS RN CALLED DR. GALARZA'S OFFICE, DR. GALARZA WILL CALL IN PRESCRIPTION FOR ANTI NAUSEA MEDICATION. PT WAS STILL EXTREMEMLY AGITATED UPON DISCHARGE.
== END 2020-11-03 17:29 | disposition home or self-care (01) ==
LOC: ORSCSDS 13:18
PROVIDERS: Orthopaedic Surgery
PROC: 0SBC4ZZ Excision of Right Knee Joint, Percutaneous Endoscopic Approach (ICD-10-PCS; principal; 2020-11-03 14:45)
PROC: 0MRN47Z Replacement of Right Knee Bursa and Ligament with Autologous Tissue Substitute, Percutaneous Endoscopic Approach (ICD-10-PCS; principal; 2020-11-03 14:45)
DX: S83.511A Sprain of anterior cruciate ligament of right knee, initial encounter (principal); S83.281A Other tear of lateral meniscus, current injury, right knee, initial encounter; M94.261 Chondromalacia, right knee; M65.9 Synovitis and tenosynovitis, unspecified; F31.9 Bipolar disorder, unspecified; Z79.899 Other long term (current) drug therapy
CPT/HCPCS: A9270-GY; C1713; C1762; J0171; J1720; J1885; J2250; J2550; J2704; J2710; J3010; J3370

== ENCOUNTER 2022-11-06 17:39 | Emergency (ER) | payer OTHER, MEDICARE ==
[~2022-11-06] VITALS: Ht 175.3 cm; Wt 77.1 kg
[2022-11-06 17:39] VITALS: BP 145/101
[~2022-11-06 17:39] MED LIST changes: +BUSP10 PO; +QUET100 PO; -Seroquel Xr50 MG PO
[2022-11-06 18:54] LABS: BASOPHILS ABSOLUTE AUTO 0.08 K/mm3 (0.00-0.23); BASOPHILS PERCENT AUTO 1 % (0-2); EOSINOPHILS ABSOLUTE AUTO 0.08 K/mm3 (0.00-0.68); EOSINOPHILS PERCENT AUTO 1 % (0-6); Hematocrit 50.3 % (33.0-51.0); Hemoglobin 16.6 g/dL (11.5-16.0); IMMATURE GRAN ABSOLUTE AUTO 0.04 K/mm3 (0.00-0.10); IMMATURE GRAN PERCENT AUTO 0 % (0-1); LYMPHOCYTES ABSOLUTE AUTO 2.32 K/mm3 (0.84-5.20); LYMPHOCYTES PERCENT AUTO 19 % (21-46); MONOCYTES ABSOLUTE AUTO 0.62 K/mm3 (0.16-1.47); MONOCYTES PERCENT AUTO 5 % (4-13); Mean Corpuscular HGB 31.3 pg (26.0-34.0); Mean Corpuscular Volume 95 fL (80-100); Mean Platelet Volume 9.9 fL (9.1-12.4); NEUTROPHILS PERCENT AUTO 74 % (41-73); Platelet Count 373 K/mm3 (150-400); RDW Coefficient Variation 12.2 % (11.7-14.2); RDW Standard Deviation 42.5 fL (35.1-46.3); Red Blood Cell Count 5.31 M/mm3 (3.80-5.20); White Blood Cell Count 12.04 K/mm3 (4.00-11.30)
[2022-11-06 19:10] LABS: U Amphetamine Screen Not Detected; U Barbituate Screen Not Detected; U Benzodiazapine Screen Not Detected; U Buprenorphine Screen Not Detected; U Cannabinoids Screen DETECTED; U Cocaine Screen Not Detected; U Methadone Screen Not Detected; U Methamphetamine Screen Not Detected; U Opiates Screen Not Detected; U Oxycodone Screen Not Detected; U Phencyclidine Screen Not Detected; U Propoxyphene Screen Not Detected
[2022-11-06 19:30] LABS: Albumin, Blood 4.4 g/dL (3.4-5.0); Albumin/Globulin Ratio 0.9 (0.8-1.8); Bilirubin, Total 0.3 mg/dL (0.1-1.0); Bun/Creatinine Ratio 8.3 (12.0-20.0); Calcium, Blood 9.4 mg/dL (8.5-10.1); Creatinine, Blood 0.72 mg/dL (0.40-1.00); Globulin, Blood 4.7 g/dL (2.2-4.0); Potassium, Blood 3.9 mmol/L (3.5-5.5); Total Protein, Blood 9.1 g/dL (6.4-8.2)
== END 2022-11-06 19:40 | disposition left against medical advice (07) ==
LOC: ER 17:39
PROVIDERS: Emergency Medicine
DX: F10.129 Alcohol abuse with intoxication, unspecified (principal); Y90.8 Blood alcohol level of 240 mg/100 ml or more; V49.9XXA Car occupant (driver) (passenger) injured in unspecified traffic accident, initial encounter; Z88.8 Allergy status to other drugs, medicaments and biological substances; Z88.5 Allergy status to narcotic agent; Z88.2 Allergy status to sulfonamides; Z88.0 Allergy status to penicillin; G43.909 Migraine, unspecified, not intractable, without status migrainosus; F43.10 Post-traumatic stress disorder, unspecified
CPT/HCPCS: 36415; 70450; 72125; 80053; 85025; 90471; 99284-25; G0480

== ENCOUNTER 2024-12-16 17:53 | Inpatient (IN) | payer OTHER, MEDICARE ==
[~2024-12-16] VITALS: Ht 175.3 cm; Wt 72.9 kg
[2024-12-16] MEDS ORDERED: Ondansetron HCl 2 MG / ML 2ML Vial IV ONE (18:25)
[2024-12-16 19:08] LABS: BASOPHILS ABSOLUTE AUTO 0.02 K/mm3 (0.00-0.23); BASOPHILS PERCENT AUTO 1 % (0-2); EOSINOPHILS ABSOLUTE AUTO 0.01 K/mm3 (0.00-0.68); EOSINOPHILS PERCENT AUTO 0 % (0-6); Hematocrit 42.7 % (33.0-51.0); Hemoglobin 15.4 g/dL (11.5-16.0); IMMATURE GRAN PERCENT AUTO 0 % (0-1); LYMPHOCYTES ABSOLUTE AUTO 1.25 K/mm3 (0.84-5.20); LYMPHOCYTES PERCENT AUTO 29 % (21-46); MONOCYTES PERCENT AUTO 23 % (4-13); Mean Corpuscular HGB 31.6 pg (26.0-34.0); Mean Corpuscular HGB Conc 36.1 g/dL (31.5-36.5); Mean Corpuscular Volume 88 fL (80-100); Mean Platelet Volume 10.7 fL (9.1-12.4); NEUTROPHILS ABSOLUTE AUTO 2.05 K/mm3 (1.96-9.15); NEUTROPHILS PERCENT AUTO 47 % (41-73); Platelet Count 342 K/mm3 (150-400); RDW Coefficient Variation 12.1 % (11.7-14.2); RDW Standard Deviation 39.2 fL (35.1-46.3); Red Blood Cell Count 4.88 M/mm3 (3.80-5.20); White Blood Cell Count 4.33 K/mm3 (4.00-11.30)
[2024-12-16 19:24] LABS: Albumin, Blood 4.4 g/dL (3.4-5.0); Albumin/Globulin Ratio 1.1 (0.8-1.8); Bilirubin, Total 0.7 mg/dL (0.1-1.0); Bun/Creatinine Ratio 18.1 (12.0-20.0); Calcium, Blood 10.5 mg/dL (8.5-10.1); Creatinine, Blood 1.44 mg/dL (0.40-1.00); Globulin, Blood 4.1 g/dL (2.2-4.0); Potassium, Blood 3.7 mmol/L (3.5-5.5); Total Protein, Blood 8.5 g/dL (6.4-8.2)
[2024-12-16] MEDS ORDERED: NS 1,000 ML IV SCH (21:05)
[2024-12-16] MEDS ORDERED: Lactated Ringer's 1,000 ML IV SCH (23:00)
[2024-12-16] MEDS ORDERED: Acetaminophen 325 MG TABLET PO PRN (23:15)
[2024-12-16] MEDS ORDERED: Ondansetron HCl 2 MG / ML 2ML Vial IV PRN (23:15)
[2024-12-16 23:35] LABS: Magnesium, Blood 2.4 mg/dL (1.6-2.4)
--- NOTE | 2024-12-17 00:07 | NUR ---
ADMISSION NOTE PT FROM ER AT 0007, VIA WHEELCHAIR. PT AOX4, CALM AND COOPERATIVE. PT IND AMBULATING. EXPLAINED CALL LIGHT TO PT, PT VERBALIZED UNDERSTANDING. THIS RN TO ASSUME CARE.
[2024-12-17 00:11] VITALS: BP 112/68
[2024-12-17 00:12] LABS: Source, Urine Clean Catch
[2024-12-17 00:20] LABS: Bilirubin, Urine Neg (Neg); Blood, Urine Neg (Neg); Glucose Qualitative, Urine Neg (Neg); Ketones, Urine 3+ (Neg); Leukocyte Esterase, Urine Neg (Neg); Nitrite, Urine Neg (Neg); Protein, Urine 2+ (Neg); Specific Gravity, Urine 1.015 (1.003-1.022); Urobilinogen, Urine NORM (Normal)
[2024-12-17] MEDS ORDERED: BUPR75 PO (00:21)
[2024-12-17] MEDS ORDERED: MIRT15 PO (00:21)
[2024-12-17 00:40] LABS: Appearance, Urine Clear (Clear); Color, Urine Pale Yellow (P-Yellow)
[2024-12-17 00:41] LABS: Bacteria Rare /hpf; Red Blood Cells, Urine 0-2 /hpf (0-2); Squamous Epithelial Cells Rare /hpf (Few); White Blood Cells, Urine 0-2 /hpf (0-5)
[2024-12-17] MEDS ORDERED: DiphenhydrAMINE HCl 50 MG Cap PO PRN (01:55)
[2024-12-17 04:44] VITALS: BP 99/69
[2024-12-17 06:12] LABS: BASOPHILS ABSOLUTE AUTO 0.03 K/mm3 (0.00-0.23); BASOPHILS PERCENT AUTO 1 % (0-2); EOSINOPHILS ABSOLUTE AUTO 0.11 K/mm3 (0.00-0.68); EOSINOPHILS PERCENT AUTO 3 % (0-6); Hematocrit 36.4 % (33.0-51.0); Hemoglobin 12.8 g/dL (11.5-16.0); IMMATURE GRAN PERCENT AUTO 0 % (0-1); LYMPHOCYTES PERCENT AUTO 40 % (21-46); MONOCYTES ABSOLUTE AUTO 1.03 K/mm3 (0.16-1.47); MONOCYTES PERCENT AUTO 24 % (4-13); Mean Corpuscular HGB 31.3 pg (26.0-34.0); Mean Corpuscular HGB Conc 35.2 g/dL (31.5-36.5); Mean Corpuscular Volume 89 fL (80-100); Mean Platelet Volume 10.9 fL (9.1-12.4); NEUTROPHILS PERCENT AUTO 33 % (41-73); Platelet Count 278 K/mm3 (150-400); RDW Coefficient Variation 12.4 % (11.7-14.2); Red Blood Cell Count 4.09 M/mm3 (3.80-5.20); White Blood Cell Count 4.27 K/mm3 (4.00-11.30)
[2024-12-17 06:44] LABS: Creatinine, Blood 0.95 mg/dL (0.40-1.00); Potassium, Blood 3.2 mmol/L (3.5-5.5)
[2024-12-17 07:35] VITALS: BP 110/67
--- NOTE | 2024-12-17 07:44 | NUR ---
SHIFT SUMMARY PT HAS BEEN RESTING COMFORTABLY IN BED OVERNIGHT. SHE HAS BEEN AOX4, CALM AND COOPERATIVE, SINCE SHE ARRIVED ON UNIT AT 0007. PT INITIALLY HAD SOME NAUSEA, BUT HAS SINCE GOTTEN BETTER. PT HAS BEEN INDEPENDENT, BUT HAS BEEN RESTING IN BED. PT STATED SHE HAD NOT EATEN SINCE WEDNESDAY 12/13, SINCE SHE HAS NOT BEEN ABLE TO KEEP ANYTHING DOWN. PT HAS BEEN ON FLUIDS FOR HYDRATION. PT ALSO HAD RASH ON ABD, WHICH HAS BEEN ITCHY FOR HER, BENADRYL GIVEN. PT HAD NO OTHER COMPLAINTS. SHE HAD UNEVENTFUL NIGHT.
[2024-12-17] MEDS ORDERED: Potassium Chloride 40 MEQ in NS 250 ML IV ONE (08:25)
[2024-12-17] MEDS ORDERED: Enoxaparin 40 MG/0.4 ML SYR SC SCH (09:00)
[2024-12-17] MEDS ORDERED: Ondansetron HCl 2 MG / ML 2ML Vial IV PRN (13:25)
[2024-12-17 15:16] VITALS: BP 106/62
[2024-12-17] MEDS ORDERED: Dronabinol 2.5 MG Cap PO SCH (16:30)
--- NOTE | 2024-12-17 18:51 | NUR ---
COLLECTED VITAL SIGNS ON PATIENT TO HAVE A BASELINE, PT VITALS WERE INTIALLY SYSTOLICALLY IN THE MID 80'S AND O2 SATS IN THE LOW 80'S ON ROOM AIR. PLACED NASAL CANNULA 2L AND SATS CAME UP TO 91%, PT NOT TACHYPNIC OR LABORED BREATHING. LAYED PATIENT DOWN AND BLOOD PRESSURE READ 91/69. NOTIFIED DR. HARDING OF VITALS, REPEAT LACTIC OF 5.1 WHICH WAS AN INCREASE FROM PRIOR 4.9. DR. HARDING ORDERED 500 CC BOLUS AND TO THEN CONTINUE MAINT FLUIDS DUE TO PATIENTS HISTORY OF HEART FAILURE. AND TO TRANSFER PT TO PCU FOR CLOSER MONITORING.
[2024-12-17 19:16] VITALS: BP 108/70
--- NOTE | 2024-12-17 19:57 | NUR ---
SUMMARY PATIENT RECEIVING MAINT FLUIDS, URINATED TWICE TODAY. SMALL BM THIS AM WITH BILE PER PATIENT. TOLERATED ABOUT 20% OF DIET THEN PATIENT WAS BECOMING NAUSEAS AND REQUESTING ZOFRAN. ZOFRAN FREQUENCY WAS DECRASED TO Q6 PER DR. DISLA AND ADMINISTERED. PT REPROTED RELIEF AND THEN REQUESTED TYLENOL TO HELP WITH ACHING IN ABD FROM ALL THE DRY HEAVING/VOMITING LAST COUPLE DAYS. PT ABLE TO MAKE NEEDS KNOWN. CALL LIGHT IN REACH. DID NOT VISUALIZE HOW MUCH PATIENT ATE FROM DINNER TRAY BUT PATIENT STATES SHE TOLERATED BETTER THAN LUNCH AND IS NOT FEELING NASEOUS THIS EVENING DURING BED SIDE SHIFT REPORT.
--- NOTE | 2024-12-17 20:19 | NUR ---
[facility] CONTACT PT HOME MEDS NOT ORDERED YET; PT TAKES MIRTAZAPINE 7.5MG AT BEDTIME AND WELLBUTRIN 150MG IN THE MORNING. SPOKE TO DR. RIVERA TO REQUEST MEDS BE ORDERED. DR. RIVERA SAID HE WOULD PUT ORDER IN FOR REQUESTED MEDICATIONS.
[2024-12-17] MEDS ORDERED: Mirtazapine 15 MG Tab PO SCH (21:00)
[2024-12-18 03:44] VITALS: BP 99/60
--- NOTE | 2024-12-18 06:31 | NUR ---
STAMPER BLOCKER SUMMARY PT A/OX4. NO ACUTE EVENTS. PT ABLE TO MAKE NEEDS KNOWN. PLEASANT AND COOPERATIVE. LR INFUSING AT 150MLS HR IN CHEST PORT. PT EATING/DRINKING SMALL AMOUNTS OF FOOD AND TOLERATING WELL. CARE WILL CONTINUE UNTIL REPORT GIVEN TO ONCOMING NURSE.
[2024-12-18 07:37] VITALS: BP 106/59
[2024-12-18] MEDS ORDERED: BuPROPion HCl 75 MG Tab PO SCH (09:00)
[2024-12-18 09:28] LABS: Bun/Creatinine Ratio 9.9 (12.0-20.0); Calcium, Blood 8.5 mg/dL (8.5-10.1); Creatinine, Blood 0.71 mg/dL (0.40-1.00); Potassium, Blood 3.8 mmol/L (3.5-5.5)
[2024-12-18] MEDS ORDERED: Acetaminophen650 M1 PO (13:01)
[2024-12-18] MEDS ORDERED: MUPIROCIN1 G1 TOP (13:01)
[2024-12-18] MEDS ORDERED: NEOMYCIN-POLYMY10 ML LEFTEAR (13:02)
[2024-12-18] MEDS ORDERED: ONDA4ODT MM (13:03)
--- NOTE | 2024-12-18 15:45 | NUR ---
DISCHARGE: PT D/C @1318 VIA WHEELCHAIR WITH FATHER. NEW MEDICATIONS FAXED TO [facility] FOR EAR INFECTION. BACTERIAL SWAB COLLECTED PRIOR TO D/C. PT AWARE SHE WILL HAVE TO FOLLOW-UP WITH PCP FOR RESULTS OF SWAB. YELENA DEACCESSED W/O COMPLICATIONS AND HEPARIN FLUSH. PT STILL C/O NAUSEA BUT AGREES TO NOT CONTINUE STRENUOUS ACTIVITY UNTIL HYDRATION IS BACK TO NORMAL. NO QUESTIONS AT TIME OF D/C.
== END 2024-12-18 13:18 | disposition home or self-care (01) | DRG 683 ==
LOC: ER 17:53 → MEDS 17:54 → ENPENDDIS 12-18 10:29 → MEDS 12-18 13:18
PROVIDERS: Family Medicine; Internal Medicine; Student in an Organized Health Care Education/Training Program; ADMIT Student in an Organized Health Care Education/Training Program
DX: N17.9 Acute kidney failure, unspecified (principal); E87.1 Hypo-osmolality and hyponatremia; K50.90 Crohn's disease, unspecified, without complications; K90.829 Short bowel syndrome, unspecified; E83.52 Hypercalcemia; B95.8 Unspecified staphylococcus as the cause of diseases classified elsewhere; F31.9 Bipolar disorder, unspecified; F43.10 Post-traumatic stress disorder, unspecified; Z86.14 Personal history of Methicillin resistant Staphylococcus aureus infection; H60.92 Unspecified otitis externa, left ear; Z88.0 Allergy status to penicillin; Z88.5 Allergy status to narcotic agent; Z88.2 Allergy status to sulfonamides; Z88.8 Allergy status to other drugs, medicaments and biological substances; M54.9 Dorsalgia, unspecified; G89.29 Other chronic pain; F41.9 Anxiety disorder, unspecified; G43.909 Migraine, unspecified, not intractable, without status migrainosus; M79.7 Fibromyalgia; Z90.710 Acquired absence of both cervix and uterus; Z90.89 Acquired absence of other organs; Z90.49 Acquired absence of other specified parts of digestive tract; Z98.890 Other specified postprocedural states
CPT/HCPCS: 74177; 80048; 80053; 81001; 83690; 83735; 85025; 87015; 87045; 87046; 87070; 87077; 87147; 87186; 87205; 87899; 96361; 96365; 96366; 96375; 96376; 99285-25; A9270; G0378; J1642; J2405; J3480; J7030; J7050; J7120; Q0167; Q9967